=== PATIENT | female | born 1960 | race Caucasian/White ===

== ENCOUNTER 2020-10-07 09:45 | Outpatient (CLI) | payer MEDICARE, MEDICAID, SELFPAY ==
--- NOTE | ~2020-10-07 | US_ITS ---
EXAMINATION: US thyroid EXAM DATE: 10/07/2020 10:06 INDICATION: E04.1 - Nontoxic single thyroid nodule . TECHNIQUE: Multiple grayscale and Doppler images of the thyroid were obtained (by a technologist who performed the scan) and subsequently reviewed. Individual nodules and recommendations may be reporte d in accordance with TI-RADS system as designated by the 2017 ACR White Paper TI-RADS committee. The re is no prior study for comparison. FINDINGS: The right thyroid lobe measures 4.2 x 1.5 x 1.7 cm, the left measuring 4.5 x 1.4 x 1.9 cm. Mildly dif fusely heterogeneous thyroid echogenicity. Largest nodule is in the right thyroid lobe measuring 1.2 x 1.0 x 0.8, solid (2 points), hypoechoic ( 2 points), taller than wide (3 points), smooth well defined margin, containing punctate echogenic foc i consistent with microcalcification (3 points), category TR5 for this nodule. There is a smaller left thyroid lobe category TR 4 nodule measuring 7 x 9 x 8 mm. IMPRESSION: Normal thyroid dimensions, with a right thyroid lobe nodule just large enough to consider ultrasound-guided FNA. Reviewed, dictated and finalized at location B. IMPRESSION: Normal thyroid dimensions, with a right thyroid lobe nodule just la rge enough to consider ultrasound-guided FNA.
== END 2020-10-07 09:46 | disposition home or self-care (01) ==
LOC: CHSIMG 09:49
PROVIDERS: PCP Family Medicine; Visit Provider Otolaryngology
DX: E04.1 Nontoxic single thyroid nodule (principal); L98.9 Disorder of the skin and subcutaneous tissue, unspecified
CPT/HCPCS: 76536

== ENCOUNTER 2020-10-14 07:58 | Outpatient (CLI) | payer MEDICARE, MEDICAID, SELFPAY ==
--- NOTE | ~2020-10-14 | CT_ITS ---
EXAMINATION: CT soft tissue neck w con DATE: 10/14/2020 09:16 INDICATION: Nontoxic single thyroid nodule. Sore throat. Hoarseness. TECHNIQUE: Computed tomography (CT) of the neck was performed with 75 mL Omnipaque-350 intravenous co ntrast. Automated exposure control and iterative reconstruction technique were employed. The dose-maurice gth product was 536.28 mGy-cm. COMPARISON: Ultrasound 10/07/2020 FINDINGS: Median sternotomy wires and mediastinal surgical clips are seen, likely from prior coronary artery bypass grafting. There are no pathologically enlarged lymph nodes. There is plaque in the pro ximal internal carotid arteries with less than 50% stenosis relative to normal distal artery lumen di ameters. The thyroid nodules seen by ultrasound are occult by CT. The mastoid air cells are normal. T here are changes of anterior fusion procedure from C4 to C7. There is moderate cervical spondylosis. IMPRESSION: 1. No etiology for the patient's symptoms. Reviewed, dictated and finalized at location B.
[2020-10-14 08:41] LABS: Estimated Glomerular Filt Rate > 60
== END 2020-10-14 07:59 | disposition home or self-care (01) ==
LOC: CHSIMG 08:00
PROVIDERS: PCP Nurse Practitioner Psychiatric/Mental Health; Visit Provider Otolaryngology
DX: E04.1 Nontoxic single thyroid nodule (principal)
CPT/HCPCS: 70491; Q9967

== ENCOUNTER 2020-10-25 09:06 | Outpatient (CLI) | payer MEDICARE, MEDICAID, SELFPAY ==
--- NOTE | ~2020-10-25 | US_ITS ---
EXAMINATION: US FNA w image guidance DATE: 10/25/2020 10:02 INDICATION: Right thyroid nodule TECHNIQUE: A time-out was performed to verify the patient's name, date of , and procedure to be performed . The procedure and its benefits and risks were discussed with the patient. Risks specifically discus sed included bleeding and infection. The patient understood the risks and agreed to proceed. The neck was prepped and draped in the usual sterile manner. 3 mL 1% lidocaine was used for local anesthesia . 6 passes were made with a 25G needle into the lesion. Appropriate needle location was documented with continuous sonographic guidance. The specimens were passed to the computed tomography technologist in the room. A sterile bandage was applied. There were no immediate complications. FINDINGS: Grayscale ultrasound images demonstrate biopsy needles advanced into an 11 mm isoechoic solid nodule in the right thyroid. IMPRESSION: 1. Successful ultrasound-guided fine needle aspiration of the 11 mm solid right thyroid nodule of co ncern. Reviewed, dictated and finalized at location A. IMPRESSION: 1. Successful ultrasound-guided fine needle aspiration of the 11 mm solid righ t thyroid nodule of concern.
== END 2020-10-25 09:07 | disposition home or self-care (01) ==
PROVIDERS: PCP Nurse Practitioner Psychiatric/Mental Health; Visit Provider Otolaryngology
DX: E04.1 Nontoxic single thyroid nodule (principal)
CPT/HCPCS: 10005; 88173; 88305